=== PATIENT | female | born 1945 | race Two or more races ===

== ENCOUNTER 2020-09-28 14:32 | Emergency (ER) | payer SELFPAY ==
[~2020-09-28] VITALS: Ht 160 cm; Wt 59.0 kg
[2020-09-28] MEDS ORDERED: DICL100G31 TP (14:55)
[2020-09-28] MEDS ORDERED: DULO30CA2 PO (14:55)
[2020-09-28] MEDS ORDERED: ZOLP10TA2 PO (14:55)
[2020-09-28] MEDS ORDERED: AMIT10TA6 PO (14:55)
[2020-09-28 16:30] VITALS: BP 149/85
== END 2020-09-28 16:32 | disposition left against medical advice (07) ==
LOC: ER 14:32
DX: Z00.00 Encounter for general adult medical examination without abnormal findings (principal); R94.31 Abnormal electrocardiogram [ECG] [EKG]; I10 Essential (primary) hypertension; E11.9 Type 2 diabetes mellitus without complications; E78.00 Pure hypercholesterolemia, unspecified; F41.9 Anxiety disorder, unspecified; Z79.84 Long term (current) use of oral hypoglycemic drugs
CPT/HCPCS: 71045; 93005; 99283